=== PATIENT | female | born 1995 | race African-American/Black ===

== ENCOUNTER 2016-10-28 17:23 | Emergency (ER) | payer MEDICAID ==
[~2016-10-28] VITALS: Ht 167.6 cm; Wt 90.0 kg
[~2016-10-28 17:23] MED LIST: IBUP800T23 PO; METH750T2 PO
[2016-10-28 17:25] VITALS: BP 118/62; PULSE 74; RESP 16; TEMP 97.7; O2SAT 98
--- NOTE | 2016-10-28 17:32 | PD ---
HPI . headache for several days Chief Complaint: Headache Time Seen by Provider: 17:32 Travel History International Travel<30 days: No Contact w/Intl Traveler<30days: No Traveled to known affect area: No History of Present Illness HPI 21 yr old female reports a headache for the past 5 days. She denies any hx of migraines and says she has been congested for the past several days. She has a fullness sensation in her head. She admits to sinus pressure. She denies any fever or chills. She denies any photophobia or neck stiffness. She is accompanied by her mother. PFSH Past Medical History Diminished Hearing: No ?: Not LMP: UNKNOWN Social History Alcohol Use: No Tobacco Use: No Substance Use: No Allergies-Medications (Allergen,Severity, Reaction): Coded Allergies: No Known Allergies (Verified , 12/04/14) Reported Meds & Prescriptions Reported Meds & Active Scripts Active Augmentin (Amoxicillin-Clavulanate) 875-125 mg Tab 875 Mg PO BID not for use in CrCl <30 ml/min. Methocarbamol 750 Mg Tab 750 Mg PO QID Ibuprofen 800 Mg Tab 800 Mg PO TID Review of Systems General / Constitutional: No: Fever Eyes: No: Visual changes HENT: Positive: Headaches, Congestion Cardiovascular: No: Chest Pain or Discomfort Respiratory: No: Shortness of Breath Gastrointestinal: No: Abdominal Pain Genitourinary: No: Dysuria Musculoskeletal: No: Pain Skin: No Rash Neurologic: No: Weakness Psychiatric: No: Depression Endocrine: No: Polydipsia Hematologic/Lymphatic: No: Easy Bruising Physical Exam Narrative GENERAL: AAO x 3, no acute distress, Well-nourished, well-developed patient. SKIN: Warm and dry. No visible rashes or bruising. HEAD: Normocephalic and atraumatic. EYES: No scleral icterus. No injection or drainage. EOM intact, PERRLA ENT: No nasal drainage noted. Mucous membranes pink. Airway patent. No posterior pharynx erythema. There is maxillary sinus tenderness on palpation. TMs with air bubbles bilaterally. NECK: Supple, trachea midline. No JVD. No lymphadenopathy. CARDIOVASCULAR: Regular rate and rhythm without murmurs, gallops, or rubs. RESPIRATORY: Breath sounds equal bilaterally. No accessory muscle use. No rhonchi or rales. GASTROINTESTINAL: Visual inspection normal. EXTREMITIES: No cyanosis or edema. BACK: Nontender without obvious deformity. No CVA tenderness. PSYCH: AAO x 3, normal affect. Data Data Last Documented VS Vital Signs Date Time Temp Pulse Resp B/P Pulse Ox O2 Delivery O2 Flow Rate FiO2 10/28/16 17:25 97.7 74 16 118/62 98 MDM Medical Decision Making Medical Screen Exam Complete: Yes Emergency Medical Condition: Yes Medical Record Reviewed: Yes Differential Diagnosis Sinusitis, pharyngitis, allergic rhinitis Narrative Course 21 yr old female reports a headache for the past 5 days. She denies any hx of migraines and says she has been congested for the past several days. She has a fullness sensation in her head. She admits to sinus pressure. She denies any fever or chills. She denies any photophobia or neck stiffness. She is accompanied by her mother. Seen and examined. She does have maxillary sinus tenderness. There are air bubbles seen and the TMs bilaterally. She appears to have sinusitis. I explained to her that she will benefit from a course of antibiotics. She can use Sudafed to help reduce sinus pressure. Tylenol or Motrin as needed for headache. Explained to the patient that antibiotics are not magic and take a while to work. Patient verbalized understanding of instructions, questions were answered, and thanked me for their care. I advised them if their condition worsens, please return to the nearest emergency room for further care. Diagnosis Primary Impression: Acute sinusitis Qualified Code: J01.00 - Acute maxillary sinusitis, recurrence not specified Additional Impression: Sinus headache Additional Instructions: Please return to emergency department if your symptoms return or worsen. Follow up with your primary care provider. Take medications as prescribed. You can try [id number] Sudafed to help with relief. You can take Tylenol or Motrin as needed for pain. Med/Other Pt SpecificInfo: Prescription(s) given Scripts Amoxicillin-Clavulanate (Augmentin)875-125 mg [id number] Mg PO BID #20 TAB not for use in CrCl <30 ml/min. Prov:Mark Austin MD 10/28/16 Disposition: 01 DISCHARGE HOME Condition: Stable Renu Turner Oct 28, 2016 17:32
[2016-10-28] MEDS ORDERED: AUGM875T PO (17:37)
== END 2016-10-28 18:05 | disposition home or self-care (01) ==
LOC: NEPK 17:23
DX: J01.00 Acute maxillary sinusitis, unspecified (principal)
CPT/HCPCS: 99283

== ENCOUNTER 2017-08-30 20:41 | Emergency (ER) | payer OTHER ==
[~2017-08-30 20:41] MED LIST changes: +AUGM875T PO
[2017-08-30 20:46] VITALS: BP 168/64; PULSE 108; RESP 16; TEMP 99.1; O2SAT 100
[2017-08-30] MEDS ORDERED: CYCLOBENZAPRINE HCL 10 MG TAB PO ONE (22:45)
[2017-08-30] MEDS ORDERED: IBUPROFEN 800 MG TAB PO ONE (22:45)
[2017-08-30] MEDS ORDERED: CYCL10TA PO (22:46)
[2017-08-30] MEDS ORDERED: IBUP1TAB7 PO (22:46)
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
== END 2017-08-30 23:14 | disposition home or self-care (01) ==
LOC: NEPK 20:41
DX: M79.601 Pain in right arm (principal); M79.604 Pain in right leg; V43.62XA Car passenger injured in collision with other type car in traffic accident, initial encounter
CPT/HCPCS: 99283